=== PATIENT | male | born 1990 ===

== ENCOUNTER 2019-06-28 10:14 | Emergency (ER) | payer BC ==
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
--- NOTE | 2019-06-28 11:55 | XRay Report ---
LEFT WRIST, 4 VIEWS INDICATION: fell on left wrist. Left wrist injury. COMPARISON: None. IMPRESSION: Normal bone mineralization. A loose bony fragment is identified along the dorsal surfac e of the wrist on the lateral view highly suggestive of a triquetral fracture. This could be further evaluated with CT without contrast if needed. The remaining bony structures are grossly intact. No si gnificant degenerative changes or ligamentous injury. There is moderate soft tissue swelling on the d orsum of the wrist. Signer Name: Len Guidry Jr, MD Signed: 06/28/2019 11:51 AM Workstation Name: [id number]
[2019-06-28] MEDS ORDERED: NORCO 5/325 PO ONE (12:23)
[2019-06-28 13:11] VITALS: BP 134/82
== END 2019-06-28 13:11 | disposition home or self-care (01) ==
LOC: ED 10:14
DX: S62.102A Fracture of unspecified carpal bone, left wrist, initial encounter for closed fracture (principal); Z79.899 Other long term (current) drug therapy; V29.3XXA Motorcycle rider (driver) (passenger) injured in unspecified nontraffic accident, initial encounter; Y93.89 Activity, other specified; Y92.098 Other place in other non-institutional residence as the place of occurrence of the external cause; Y99.8 Other external cause status